=== PATIENT | female | born 1950 | race African-American/Black ===

== ENCOUNTER 2022-10-21 15:14 | Emergency (ER) | payer BC, OTHER ==
[~2022-10-21] VITALS: Ht 175.3 cm; Wt 68.0 kg
[2022-10-21] MEDS ORDERED: METHYLPREDNISOLONE SOD SUCC 125 MG/2 ML VIAL IV STA (15:27)
[2022-10-21] MEDS: ALBUTEROL (0.083%) 2.5MG/3ML NEB HHN STA ×2 (15:55→16:08)
[2022-10-21] MEDS: IPRATROPIUM BROMIDE (0.02%) 0.5MG/2.5ML NEB HHN STA ×2 (15:55→16:08)
[2022-10-21 16:23] LABS: BASOPHILS % 0.9 % (0.0-2.0); EOSINOPHILS % 1.3 % (0.0-5.0); HEMATOCRIT. 47.1 % (36.0-48.0); HEMOGLOBIN. 15.7 g/dL (12.0-16.0); LYMPHOCYTES % 14.5 % (20.0-50.0); MEAN CORPUSCULAR HEMOGLOBIN 29.5 pg (28.0-32.0); MEAN CORPUSCULAR VOLUME 88.4 fL (81.0-99.0); MONOCYTES % 10.4 % (2.0-8.0); NEUTROPHILS % 72.9 % (40.0-76.0); PLATELET 302 x1000/uL (130-400); RED BLOOD CELL COUNT 5.33 mill/uL (4.2-5.4)
[2022-10-21 16:25] LABS: CHLORIDE 101 mEq/L (98-107)
[2022-10-21 16:37] LABS: ETHANOL BLOOD < 10 mg/dL
[2022-10-21 16:56] LABS: BG BASE EXCESS -2.5 mmol/L (-2.0-2.0); BG CARBOXYHEMOGLOBIN 1.2 % (0.5-1.5); BG DEOXYHEMOGLOBIN 3.9 % (0.0-5.0); BG FRACTION INSPIRED OXYGEN 44; BG HCO3 ACT 23.7 mmol/L (22.0-26.0); BG METHEMOGLOBIN 0.6 % (0.0-1.5); BG OXYHEMOGLOBIN 94.3 % (94.0-97.0); BG PCO2 45.8 mmHg (35.0-45.0); BG PH 7.332 (7.350-7.450); BG PO2 78.4 mmHg (75.0-100.0); BG SAMPLE SITE RIGHT RADIAL; BG TOTAL HEMOGLOBIN 16.4 g/dL (12.0-18.0); BG VENT MODE NASAL CANNULA
[2022-10-21] MEDS ORDERED: ACETAMINOPHEN 325MG TABLET PO ONE (17:15)
[2022-10-21] MEDS ORDERED: ALBUTEROL (0.5%) 2.5MG/0.5ML NEB HHN NR (18:15)
[2022-10-21] MEDS ORDERED: HYDRALAZINE 20MG/ML VIAL IV ONE (19:45)
[2022-10-21 22:32] VITALS: BP 151/96
== END 2022-10-21 22:42 | disposition short-term general hospital (02) ==
LOC: ER 15:14
DX: J44.1 Chronic obstructive pulmonary disease with (acute) exacerbation (principal); J96.91 Respiratory failure, unspecified with hypoxia; I10 Essential (primary) hypertension; F17.210 Nicotine dependence, cigarettes, uncomplicated; Z20.822 Contact with and (suspected) exposure to COVID-19
CPT/HCPCS: 36415; 36600; 71045; 80053; 80320; 82375; 82805; 83605; 83690; 83880; 84484; 85025; 86850; 86900; 86901; 87426; 94640; 96374; 99285; C9803; J2930; G0480